=== PATIENT | female | born 1980 | race Caucasian/White ===

== ENCOUNTER → 2021-02-17 07:48 | Outpatient (CLI) | payer BC, SELFPAY ==
--- NOTE | ~2021-02-17 | US_ITS ---
EXAMINATION: US thyroid DATE: 02/17/2021 08:12 INDICATION: Thyroid nodule TECHNIQUE: Multiple ultrasound images of the thyroid were obtained. COMPARISON: None. FINDINGS: The right thyroid lobe measures 5.1 x 1.3 x 1.5 cm. The left thyroid lobe measures 5.2 x 0.9 x 1.6 c m. 5 mm wider than tall solid hypoechoic nodule with ill-defined margins (TI-RADS 4, moderately susp icious , FNA if >=1.5 cm, annual followup is >=1 cm) in the inferior left thyroid. There is normal ec hotexture, echogenicity and vascular flow throughout the thyroid gland. IMPRESSION: 1. 5 mm BI-RADS 4 left thyroid nodule which requires no biopsy or further follow-up. Reviewed, dictated and finalized at location A. IMPRESSION: 1. 5 mm BI-RADS 4 left thyroid nodule which requires no biopsy or further follo w-up.
== END ==
PROVIDERS: PCP Physician Assistant; Visit Provider Physician Assistant
DX: E04.1 Nontoxic single thyroid nodule (principal)
CPT/HCPCS: 76536